=== PATIENT | female | born 1955 | race Caucasian/White ===

== ENCOUNTER 2017-03-18 22:49 | Observation (INO) | payer OTHER ==
--- NOTE | 2017-03-18 23:01 | EDPHY ---
H & P HPI/ROS: HPI CHIEF COMPLAINT: Chest pain, shortness of breath HISTORY OF PRESENT ILLNESS: This is a very pleasant 61-year-old female, denies any significant medical history specifically denies cardiovascular history no history of WA or stroke, otherwise healthy does not take any daily medications she presents emergency room with 1 day of chest discomfort. She states prior to this over the last 48 hours she has had a generalized flu-like illness. Patient reports that she has felt ill with mild flu-like illness for 48 hours but is getting better. Around 8:00 a.m. this morning she developed chest discomfort in the center of her chest sometimes goes up to right jaw all and numbness tingling down her right arm. It has been steady there today but worse this evening. No vomiting but did have nausea. No diaphoresis. Additionally she reports she can't take a deep breath in as it hurts. She initially described the pain is achy but also sharp stabbing at times. Does not radiate to her back. She has never had anything like this before. She did take aspirin prior to arrival. Current level pain 810. Denies history of DVT or PE. Past Medical History: Denies medical history Past Surgical History: Denies recent surgery Social History: Denies daily use drugs alcohol tobacco products. Family History: Noncontributory. ROS REVIEW OF SYSTEMS: A comprehensive 10 point review of systems is otherwise negative aside from elements mentioned in the history of present illness. Exam Constitutional triage nursing summary reviewed, vital signs reviewed, awake/ alert. Eyes normal conjunctivae and sclera, EOMI, PERRLA. HENT normal inspection, atraumatic, moist mucus membranes, no epistaxis, neck supple/ no meningismus, no raccoon eyes. Respiratory clear to auscultation bilaterally, normal breath sounds, no respiratory distress, no wheezing. Cardiovascular rate normal, regular rhythm, no murmur, no edema, distal pulses normal. Gastrointestinal soft, non-tender, no rebound, no guarding, normal bowel sounds, no distension, no pulsatile mass. Genitourinary no CVA tenderness. Musculoskeletal no midline vertebral tenderness, full range of motion, no calf swelling, no tenderness of extremities, no meningismus, good pulses, neurovascularly intact. Skin pink, warm, & dry, no rash, skin atraumatic. Neurologic awake, alert and oriented x 3, AAOx3, moves all 4 extremities equally, motor intact, sensory intact, CN II-XII intact, normal cerebellar, normal vision, normal speech. Psychiatric normal mood/affect. Heme/Lymph/Immune no lymphadenopathy. 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 Re-evaluation: EKG interpretation by me on record in [employer] system. Impression time of EKG 2300, this is sinus rhythm rate of 73 I do not appreciate acute ischemic changes specifically no ST elevation ST depression T-wave abnormalities. Unremarkable EKG. 2359: This patient's troponin is noted to be normal. EKG nonischemic. However her D-dimer is noted to be positive. In the setting this patient is 61 years old has pleuritic pain chest pain and shortness of breath and positive D-dimer will proceed with CT angiogram of the chest. Rule out pulmonary embolism. Chest x-ray one view reviewed by myself. Negative for acute cardiopulmonary disease. No free air. 1204: I did review this patient at this time. She still has ongoing chest pain. Nitroglycerin did not improve her discomfort. I have ordered her 4 mg of morphine and 4 mg Zofran at this time. CT scan angiogram of the chest with IV contrast shows no pulmonary embolism. Does show right apical pleural thickening. Recommend repeat CT scan in 1 year if she has smoking history. Re-evaluation at 1:42 a.m.: Patient does state she feels more relaxed however still has ongoing pain. It is pleuritic in nature when she breathes in. I have ordered her Toradol as well as Dilaudid to see if this improves her discomfort. Low-dose Toradol 50 mg. 1 mg Dilaudid. Additionally updated her on her CT scan. She does have a remote smoking history when she was young. Recommend repeat CT scan of her chest in 1 year with her primary care doctor she understands. Additionally as she is having ongoing unexplained chest discomfort in his 61- year-old I recommend she stays overnight for further cardiac evaluation and rule out she agrees for this. Spoke with the hospitalist service Dr. Osman agrees to admit the patient. Dr. Aniket Frazier did notify me that she does have a thyroid nodule that needs follow-up with an ultrasound outpatient basis. Source: Patient Constitutional: Initial Vital Signs Temperature (C) 36.7 C 03/18/17 22:57 Heart Rate 74 03/18/17 22:57 Respiratory Rate 16 03/18/17 22:57 Blood Pressure 130/77 H 03/18/17 22:57 O2 Sat (%) 97 03/18/17 22:57 O2 Delivery Mode Nasal Cannula O2 (L/minute) 2 Allergies/Adverse Reactions: No Known Allergies Allergy (Unverified 03/18/17 23:06) Home Medications: Medication Instructions Recorded Aspirin EC [Aspirin EC 81 mg (*)] 81 mg PO DAILY@03/19/17 Calcium Carb W/Vit D [Calcium Carb 500 mg PO DAILY@03/19/17 W/Vit D 500/200 (*)] Herbals/Supplements -Info Only 1 ea PO DAILY 03/19/17 Methylcellulose [Citrucel] 2,000 mg PO DAILY@03/19/17 Propylene Glycol/Peg 400/Pf 1 each EACHEYE BID PRN 03/19/17 [Systane 0.3-0.4% Eye Drops] Valacyclovir HCl [Valtrex] 1,000 mg PO DAILY 03/19/17 Medical Decision Making - Data Points Laboratory Results: Laboratory Results 03/18/17 23:05 03/18/17 23:05 Medications Given: Acetaminophen (Tylenol) 650 mg PO Q4HRS PRN PRN Reason: Pain, Mild/Fever, Can Take PO Stop: 09/15/17 01:51 Last Admin: 03/19/17 18:35 Dose: 650 mg Albuterol (Proventil Neb) 3 ml IH TID [facility] Stop: 09/15/17 15:59 Last Admin: 03/19/17 21:35 Dose: 3 ml Enoxaparin Sodium (Lovenox) 40 mg SC DAILY [facility] Stop: 09/15/17 08:59 Last Admin: 03/19/17 08:41 Dose: 40 mg Oxycodone HCl (Oxycodone Ir) 5 mg PO Q4HRS PRN PRN Reason: Pain, Severe Able to Take PO Stop: 03/29/17 13:13 Last Admin: 03/19/17 21:49 Dose: 5 mg Discontinued Medications Al Hydroxide/Mg Hydroxide (Maalox Susp) 30 ml PO ONCE ONE Stop: 03/19/17 00:42 Last Admin: 03/19/17 00:46 Dose: 30 ml Hydromorphone HCl (Dilaudid) 1 mg IVP EDNOW ONE Stop: 03/19/17 02:21 Last Admin: 03/19/17 02:25 Dose: 1 mg Hyoscyamine Sulfate (Levsin, Hyomax-Sl) 0.25 mg PO ONCE ONE Stop: 03/19/17 00:42 Last Admin: 03/19/17 00:46 Dose: 0.25 mg Sodium Chloride (Ns) 500 mls @ 1,000 mls/hr IV EDNOW ONE PRN Reason: Protocol Stop: 03/18/17 23:39 Last Admin: 03/18/17 23:27 Dose: 500 mls Ketorolac Tromethamine (Toradol) 15 mg IVP EDNOW ONE Stop: 03/19/17 02:21 Last Admin: 03/19/17 02:24 Dose: 15 mg Ketorolac Tromethamine (Toradol) 15 mg IVP ONCE ONE Stop: 03/19/17 07:19 Last Admin: 03/19/17 08:34 Dose: 15 mg Lidocaine (Lidocaine 2% Viscous) 15 ml PO ONCE ONE Stop: 03/19/17 00:42 Last Admin: 03/19/17 00:46 Dose: 15 ml Methylprednisolone Sodium Succinate (Solu-Medrol) 125 mg IVP ONCE ONE Stop: 03/19/17 13:13 Last Admin: 03/19/17 13:42 Dose: 125 mg Morphine Sulfate (Morphine) 4 mg IVP EDNOW ONE Stop: 03/19/17 00:04 Last Admin: 03/19/17 00:08 Dose: 4 mg Nitroglycerin (Nitrostat) 0.4 mg SL EDNOW ONE Stop: 03/18/17 23:13 Last Admin: 03/18/17 23:26 Dose: 0.4 tab Ondansetron HCl (Zofran) 4 mg IVP EDNOW ONE Stop: 03/19/17 00:04 Last Admin: 03/19/17 00:08 Dose: 4 mg Departure - Departure Disposition: [facility] Inpatient Acute Clinical Impression: Chest pain Qualifiers: Chest pain type: unspecified Qualified Code(s): R07.9 - Chest pain, unspecified Condition: Fair
--- NOTE | 2017-03-18 23:08 | CPEKG ---
Heart Rate: 73 RR Interval: 822 P-R Interval: 148 QRSD Interval: 90 QT Interval: 404 QTC Interval: 446 P [place]: 57 QRS [place]: 68 T Wave [place]: 20 EKG Severity - NORMAL ECG - EKG Impression: SINUS RHYTHM Electronically Signed By: Zbigniew Leonardo 19-Mar-2017 06:45:25
[2017-03-18] MEDS ORDERED: NS 500 ML IV ONE (23:10)
[2017-03-18] MEDS ORDERED: NITROGLYCERIN 0.4 MG BTL SL ONE (23:12)
[2017-03-18 23:26] LABS: % IMMATURE GRANULYOCYTES 0.3 % (0.0-1.1); ABSOLUTE IMMATURE GRANULOCYTES 0.02 10^3/uL (0.00-0.10); ADD DIFF? NO; ADD MORPH? NO; ADD SCAN? NO; ATYPICAL LYMPHOCYTE FLAG 10 (0-99); FRAGMENT RBC FLAG 0 (0-99); HEMATOCRIT 42.1 % (38.0-47.0); HEMOGLOBIN 14.5 g/dL (12.6-16.3); LEFT SHIFT FLG 10 (0-99); LIPEMIA HEMOLYSIS FLAG 90 (0-99); MEAN CELL HEMOGLOBIN CONCENTR. 34.4 g/dL (32.4-36.7); MEAN CELL VOLUME 98.6 fL (81.5-99.8); MEAN PLATELET VOLUME 9.2 fL (8.7-11.7); PLATELET CLUMPS FLAG 20 (0-99); PLATELET COUNT 245 10^3/uL (150-400); RED BLOOD CELL COUNT 4.27 10^6/uL (4.18-5.33); RED CELL DISTRIBUTION WIDTH 12.1 % (11.5-15.2)
[2017-03-18 23:34] LABS: ALANINE AMINOTRANSFERASE 39 IU/L (9-52); ALBUMIN 3.9 g/dL (3.5-5.0); ALKALINE PHOSPHATASE 61 IU/L (38-126); ANION GAP 13 mEq/L (8-16); ASPARTATE AMINOTRANSFERASE 26 IU/L (14-46); BILIRUBIN,TOTAL 0.7 mg/dL (0.1-1.4); BILIRUBIN-CONJUGATED 0.2 mg/dL (0.0-0.5); BILIRUBIN-UNCONJUGATED 0.5 mg/dL (0.0-1.1); CARBON DIOXIDE 26 mEq/l (22-31); CHLORIDE 97 mEq/L (97-110); CREATININE 0.9 mg/dL (0.6-1.0); GLOMERULAR FILTRATION RATE > 60; GLUCOSE 118 mg/dL (70-100); MAGNESIUM 1.7 mg/dL (1.6-2.3); SODIUM 136 mEq/L (134-144); TOTAL PROTEIN 6.8 g/dL (6.3-8.2)
[2017-03-18 23:38] LABS: INR 0.95 (0.83-1.16); PROTIME(PATIENT) 12.6 SEC (12.0-15.0)
[2017-03-18 23:39] LABS: APTT 45.3 SEC (23.0-38.0)
[2017-03-18 23:45] LABS: TROPONIN I < 0.012 ng/mL (0.000-0.034)
[2017-03-19] MEDS ORDERED: ONDANSETRON 4 MG/2 ML VIAL IVP ONE (00:03)
[2017-03-19] MEDS ORDERED: ONDANSETRON 4 MG/2 ML VIAL ONE (00:05)
[2017-03-19] MEDS ORDERED: IOPAMIDOL (ISOVUE 370) 100 ML BTL IV ONE (00:06)
[2017-03-19] MEDS ORDERED: MAG HYDROX/AL HYDROX/SIMETH 30 ML UDCUP PO ONE (00:41)
[2017-03-19] MEDS ORDERED: HYOSCYAMINE SULFATE 0.125 MG TAB PO ONE (00:41)
[2017-03-19] MEDS ORDERED: LIDOCAINE 2% VISCOUS 15 ML UDCUP PO ONE (00:41)
[2017-03-19] MEDS ORDERED: HYOSCYAMINE SULFATE 0.125 MG TAB ONE (00:49)
[2017-03-19] MEDS ORDERED: ACETAMINOPHEN 325 MG TAB PO PRN (01:52)
[2017-03-19] MEDS ORDERED: ONDANSETRON 4 MG/2 ML VIAL IVP PRN (01:52)
[2017-03-19] MEDS ORDERED: ONDANSETRON DISINTEGRATING 4 MG TAB PO PRN (01:52)
[2017-03-19] MEDS ORDERED: HYDROmorphONE/DILAUDID 1 MG/ML INJ IVP ONE (02:20)
[2017-03-19] MEDS ORDERED: KETOROLAC 15 MG/1 ML SDV IVP ONE ×2 (02:20→07:18)
--- NOTE | 2017-03-19 02:28 | PDGENHP ---
History and Physical - Chief Complaint Chest pain - History of Present Illness 61 yo F w/ no significant PMHx presents with chest pain. She has had flu like symptoms for 2 days including fatigue and congestion. On the morning prior to admission she felt better but then she developed severe, central chest pain around 8 AM. The pain is very positional, worse when she lays back or leans forward. It is also pleuritic and worsened by deep breathing with some radiation to her neck. It is not reproducible on palpation and she has not had similar pain in the past. Pain was improved by ibuprofen but unaffected by nitroglycerin. In the ED work up thus far unrevealing with negative troponin, non-ischemic ECG , and CTPE without pulmonary embolism or pneumonia. History Information - Allergies/Home Medication List Allergies/Adverse Reactions: No Known Allergies Allergy (Unverified 03/18/17 23:06) Home Medications: ASPIRIN 03/18/17 [Last Taken Unknown] Valtrex (*) 03/18/17 [Last Taken Unknown] I have personally reviewed and updated: family history, medical history - Past Medical History no pertinent PMH - Family History Positive for: cancer, stroke - Social History Smoking Status: Never smoked Drug Use: None Review of Systems Review of Systems: ROS: 10pt was reviewed & negative except for what was stated in HPI & below Physical Exam Physical Exam: Temp Pulse Resp BP Pulse Ox 36.7 C 85 18 106/83 H 95 03/18/17 22:57 03/19/17 02:12 03/19/17 02:12 03/19/17 02:12 03/19/17 02:12 Constitutional: no apparent distress, not in pain Eyes: PERRL, EOMI Ears, Nose, Mouth, Throat: moist mucous membranes, no oral mucosal ulcers Cardiovascular: regular rate and rhythym, no murmur, rub, or gallop Respiratory: no respiratory distress, no rales or rhonchi Gastrointestinal: normoactive bowel sounds, soft, non-tender abdomen Genitourinary: no bladder fullness, no bladder tenderness Skin: warm, normal color Musculoskeletal: full muscle strength, no muscle tenderness Neurologic: AAOx3, CN II-XII Intact Psychiatric: interacting appropriately, not anxious Lab Data & Imaging Review 03/18/17 23:05 03/18/17 23:05 WBC 7.60 10^3/uL (3.80-9.50) 03/18/17 23:05 RBC 4.27 10^6/uL (4.18-5.33) 03/18/17 23:05 Hgb 14.5 g/dL (12.6-16.3) 03/18/17 23:05 Hct 42.1 % (38.0-47.0) 03/18/17 23:05 MCV 98.6 fL (81.5-99.8) 03/18/17 23:05 MCH 34.0 pg (27.9-34.1) 03/18/17 23:05 MCHC 34.4 g/dL (32.4-36.7) 03/18/17 23:05 RDW 12.1 % (11.5-15.2) 03/18/17 23:05 Plt Count 245 10^3/uL (150-400) 03/18/17 23:05 MPV 9.2 fL (8.7-11.7) 03/18/17 23:05 Neut % (Auto) 64.9 % (39.3-74.2) 03/18/17 23:05 Lymph % (Auto) 23.6 % (15.0-45.0) 03/18/17 23:05 Stanley % (Auto) 10.1 % (4.5-13.0) 03/18/17 23:05 Eos % (Auto) 0.8 % (0.6-7.6) 03/18/17 23:05 Baso % (Auto) 0.3 % (0.3-1.7) 03/18/17 23:05 Nucleat RBC Rel Count 0.0 % (0.0-0.2) 03/18/17 23:05 Absolute Neuts (auto) 4.94 10^3/uL (1.70-6.50) 03/18/17 23:05 Absolute Lymphs (auto) 1.79 10^3/uL (1.00-3.00) 03/18/17 23:05 Absolute Monos (auto) 0.77 10^3/uL (0.30-0.80) 03/18/17 23:05 Absolute Eos (auto) 0.06 10^3/uL (0.03-0.40) 03/18/17 23:05 Absolute Basos (auto) 0.02 10^3/uL (0.02-0.10) 03/18/17 23:05 Absolute Nucleated RBC 0.00 10^3/uL (0-0.01) 03/18/17 23:05 Immature Gran % 0.3 % (0.0-1.1) 03/18/17 23:05 Immature Gran # 0.02 10^3/uL (0.00-0.10) 03/18/17 23:05 PT 12.6 SEC (12.0-15.0) 03/18/17 23:05 INR 0.95 (0.83-1.16) 03/18/17 23:05 APTT 45.3 SEC (23.0-38.0) H 03/18/17 23:05 D-Dimer 0.57 ug/mLFEU (0.00-0.50) H 03/18/17 23:05 Sodium 136 mEq/L (134-144) 03/18/17 23:05 Potassium 4.0 mEq/L (3.5-5.2) 03/18/17 23:05 Chloride 97 mEq/L (97-110) 03/18/17 23:05 Carbon Dioxide 26 mEq/l (22-31) 03/18/17 23:05 Anion Gap 13 mEq/L (8-16) 03/18/17 23:05 BUN 20 mg/dL (7-23) 03/18/17 23:05 Creatinine 0.9 mg/dL (0.6-1.0) 03/18/17 23:05 Estimated GFR > 60 03/18/17 23:05 Glucose 118 mg/dL (70-100) H 03/18/17 23:05 Calcium 9.0 mg/dL (8.5-10.4) 03/18/17 23:05 Magnesium 1.7 mg/dL (1.6-2.3) 03/18/17 23:05 Total Bilirubin 0.7 mg/dL (0.1-1.4) 03/18/17 23:05 Conjugated Bilirubin 0.2 mg/dL (0.0-0.5) 03/18/17 23:05 Unconjugated Bilirubin 0.5 mg/dL (0.0-1.1) 03/18/17 23:05 AST 26 IU/L (14-46) 03/18/17 23:05 ALT 39 IU/L (9-52) 03/18/17 23:05 Alkaline Phosphatase 61 IU/L (38-126) 03/18/17 23:05 Creatine Kinase 101 IU/L (0-156) 03/18/17 23:05 CK-MB (CK-2) Fraction 1.60 ng/mL (0.00-3.19) 03/18/17 23:05 Troponin I < 0.012 ng/mL (0.000-0.034) 03/18/17 23:05 NT-Pro-B Natriuret Pep 175 pg/mL (0-125) H 03/18/17 23:05 Total Protein 6.8 g/dL (6.3-8.2) 03/18/17 23:05 Albumin 3.9 g/dL (3.5-5.0) 03/18/17 23:05 Lipase 52 IU/L (23-300) 03/18/17 23:05 Imaging Review: CTPE without pulmonary embolism. Visualized and Interpreted EKG results: Yes EKG Interpretation: Positive for: normal sinsus rhythm, NS ST wave abnormalities Assessment & Plan Assessment: 61 yo F presents w/ atypical chest pain. Plan: 1. Atypical chest pain - Acute onset, positional, and pleuritic; unaffected by NTG. CTPE negative for embolism, pneumothorax, and pneumonia. Troponin negative and ECG non-ischemic. Patient continues to have significant discomfort. Noting recent viral illness, most likely etiology is viral inflammation of brennen- cardial structures such and pericarditis or pleuritis. - Admit for observation and ACS rule-out - Monitor on telemetry, trend cardiac enzymes - Trial Toradol for pain control noting likely inflammatory component - Noting atypical nature, I do not feel inpatient cardiac risk stratification is required unless additional work-up is suggestive of cardiac etiology Diet - Regular Code - Full Ppx - LMWH Dispo - Admit to observation status
[2017-03-19 08:23] LABS: % IMMATURE GRANULYOCYTES 0.3 % (0.0-1.1); ABSOLUTE IMMATURE GRANULOCYTES 0.02 10^3/uL (0.00-0.10); ADD DIFF? NO; ADD MORPH? NO; ADD SCAN? NO; ATYPICAL LYMPHOCYTE FLAG 10 (0-99); FRAGMENT RBC FLAG 0 (0-99); HEMOGLOBIN 12.1 g/dL (12.6-16.3); LEFT SHIFT FLG 40 (0-99); LIPEMIA HEMOLYSIS FLAG 90 (0-99); MEAN CELL HEMOGLOBIN 34.3 pg (27.9-34.1); MEAN CELL HEMOGLOBIN CONCENTR. 34.6 g/dL (32.4-36.7); MEAN CELL VOLUME 99.2 fL (81.5-99.8); MEAN PLATELET VOLUME 9.2 fL (8.7-11.7); PLATELET CLUMPS FLAG 10 (0-99); PLATELET COUNT 185 10^3/uL (150-400); RED BLOOD CELL COUNT 3.53 10^6/uL (4.18-5.33); RED CELL DISTRIBUTION WIDTH 12.2 % (11.5-15.2)
[2017-03-19 08:38] LABS: ANION GAP 9 mEq/L (8-16); CALCIUM 8.4 mg/dL (8.5-10.4); CARBON DIOXIDE 25 mEq/l (22-31); CHLORIDE 102 mEq/L (97-110); CREATININE 0.8 mg/dL (0.6-1.0); GLOMERULAR FILTRATION RATE > 60; GLUCOSE 102 mg/dL (70-100); POTASSIUM 4.6 mEq/L (3.5-5.2); SODIUM 136 mEq/L (134-144)
[2017-03-19] MEDS: ENOXAPARIN 40 MG/0.4 ML SYR SC SCH (08:41)
[2017-03-19 08:50] LABS: TROPONIN I < 0.012 ng/mL (0.000-0.034)
--- NOTE | 2017-03-19 11:58 | ASMTCMCOM ---
CM Note CM Note Notes: 03/19/2017 Case Management Note Reviewed chart. There are no PT or OT evals ordered. Case Management did not identifiy any d/c needs at this time d/t pt age, marital status and activity levels prior to admission. Case Management d/c poc: Home independent with family support when medically stable with follow up as directed. Case management available if needs change. Date Signed: 03/19/2017 11:57 AM Electronically Signed By:Gini Zaidi RN
[2017-03-19] MEDS ORDERED: methylPREDNISolone SOD SUCC 125 MG/2 ML VIAL IVP ONE (13:12)
[2017-03-19] MEDS ORDERED: HYDROmorphONE/DILAUDID 1 MG/ML INJ IVP PRN (13:13)
[2017-03-19] MEDS ORDERED: oxyCODONE IR 5 MG TAB PO PRN (13:14)
[2017-03-19] MEDS ORDERED: HYDROmorphone HCL/NS/PF 0.4 MG/2 ML SYR IVP PRN (13:18)
--- NOTE | 2017-03-19 13:19 | HOSPPROG ---
Hospitalist Progress Note Assessment/Plan: New patient 61 yo F presents w/ atypical chest pain. W/u negative for cardiac etiology. Her lung exam is more consistent with RAD vs bronchitis. She will be started on IV steroids x 1 today and transition to oral steroids tomorrow. Schedule Nebs. She does not have any chest wall tenderness. Her main complaint is pain mgmt and she will be kept overnight to provide adequate control. CTA chest - EKG: non ischemic Trop: negative x 2 1. Atypical chest pain - 2. Acute bronchitis/RAD. 3. Acute pain Diet - Regular Code - Full Ppx - LMWH Dispo - Change to inpatient Subjective: No CP currenlty. Earlier she had chest pain when walking, felt SOB. Feels like she can take a deep breath or cough. She denies hx of asthma. She was previously a tobacco smoker for several years. Objective: Vital Signs Temp Pulse Resp BP Pulse Ox 36.9 C 71 19 93/54 L 93 03/19/17 11:29 03/19/17 11:29 03/19/17 11:29 03/19/17 11:29 03/19/17 11:29 Laboratory Results 03/19/17 08:14 03/19/17 08:14 03/18/17 03/19/17 03/20/17 05:59 05:59 05:59 Intake Total 1100 Balance 1100 PT 12.6 SEC (12.0-15.0) 03/18/17 23:05 INR 0.95 (0.83-1.16) 03/18/17 23:05 - Physical Exam Constitutional: no apparent distress Eyes: PERRL, EOMI Ears, Nose, Mouth, Throat: moist mucous membranes, hearing normal Cardiovascular: regular rate and rhythym, No edema Respiratory: no respiratory distress, reduced air movement Gastrointestinal: normoactive bowel sounds, soft, non-tender abdomen Genitourinary: no bladder fullness Skin: warm Musculoskeletal: full muscle strength Neurologic: AAOx3 Psychiatric: interacting appropriately, not anxious, not encephalopathic ICD10 Worksheet Patient Problems: Problems Problem Status Onset Chest pain Acute
--- NOTE | 2017-03-19 14:20 | PDMN ---
Medical Necessity Medical necessity: C/M review: est. > 2 MN LOS for acute atypical chest pain, acute bronchitis, reactive airway disease, acute pain chest pain and shortness of breath with ambulation requiring IV steroid x 1, planned 03/20/2017 transition to oral steroids, ongoing cardiac monitoring, pulse oximetry, nebs, supplemental O2 as needed, comorbid hx prior tobacco smoker for several years per 03/19/2017 Hospitalist progress note.
[2017-03-19] MEDS: ALBUTEROL 3 ML DEYVIAL IH SCH ×2 (15:07→21:35)
[2017-03-20] MEDS: ALBUTEROL 3 ML DEYVIAL IH SCH (08:20)
[2017-03-20] MEDS: ENOXAPARIN 40 MG/0.4 ML SYR SC SCH (08:28)
[2017-03-20] MEDS ORDERED: predniSONE 20 MG TAB PO SCH (09:00)
[2017-03-20 11:24] VITALS: BP 102/60; PULSE 60; RESP 16; TEMP 98.4; O2SAT 92
--- NOTE | 2017-03-20 15:31 | ASDISCHSUM ---
Discharge Information Plan Status:Home with No Needs Medically Cleared to Leave: Discharge Date:03/20/2017 03:00 PM CM D/C Disposition:Home, Routine, Self-Care ADT D/C Disposition:Home, Routine, Self-Care Projected Discharge Date:03/20/2017 03:00 PM Transportation at D/C:Family Discharge Delay Reason: Follow-Up Date:03/20/2017 03:00 PM Discharge Slot: Final Diagnosis: Placement Information Patient Contact Information Contact Name:GEN Relationship: Address:[address] [place] [address] [place] City:[place] Alternate Phone: [facility]/Zip Code:[place] [address] Email: Financial Information Financial Class:HMO and PPO Plans Primary Plan Desc:MARIA C QIU PPO Primary Plan Number:[id number] Secondary Plan Desc: Secondary Plan Number: Assessment Information [facility] CM Progress Note CM Note CM Note Notes: 03/19/2017 Case Management Note Reviewed chart. There are no PT or OT evals ordered. Case Management did not identifiy any d/c needs at this time d/t pt age, marital status and activity levels prior to admission. Case Management d/c poc: Home independent with family support when medically stable with follow up as directed. Case management available if needs change. Date Signed: 03/19/2017 11:57 AM Electronically Signed By:Gini Zaidi RN Intervention Information
--- NOTE | 2017-03-20 18:52 | PDDCSUM ---
Discharge Summary Discharge Summary: DISCHARGE SUMMARY FOLLOW-UP ITEMS: Outpatient reassessment with her primary care provider DATE OF ADMISSION: 03/19/2017 DATE OF DISCHARGE: 03/20/2017 DISCHARGE DIAGNOSES: 1. Acute chest pain 2. Acute reactive airway exacerbation 3. Suspected pleuritis 4. Acute atelectasis 5. Suspected upper respiratory infection CONSULTATIONS: None PROCEDURES / IMAGING: CT angiograms demonstrating no pulmonary embolism, atelectasis, peribronchial thickening CHIEF COMPLAINT: Acute chest pain SUBJECTIVE: Patient is feeling well at time discharge, her chest discomfort is subsiding PHYSICAL EXAM ON DISCHARGE: Systolic blood pressure 100, heart rate 60, afebrile overnight, satting well on room air, lungs are clear on inspiration, faint expiratory wheeze bilaterally with reduced air movement on expiration, no bronchial breath sounds LABS ON DISCHARGE: Troponin negative x2, D-dimer negative, flu PCR negative HOSPITAL COURSE BY PROBLEM: The patient presented with acute chest pain most likely secondary to acute pleuritis in the setting of reactive airway disease and suspected upper respiratory infection. She was ruled out for influenza with PCR swab, responded well to nonsteroidal anti-inflammatories as well as steroids and nebulizer treatment. She will be discharged home on a 5 day burst of prednisone , as needed naproxen, as needed oxycodone immediate release, albuterol inhaler. Recommend that she will follow up with her primary care provider later this week for reassessment. DISCHARGE MEDICATIONS: Please see official discharge medication reconciliation sheet in chart , prednisone 40 mg daily x3 subsequent days, naproxen as needed, oxycodone immediate release as needed, albuterol inhaler. DISCHARGE INSTRUCTIONS: Please follow up with Dr. Narciso Evans later this week.
== END 2017-03-20 15:00 | disposition home or self-care (01) ==
LOC: F2W 03-19 02:47 → OBSVTOIN 03-19 13:15 → INTOOBSV 03-19 13:15
PROVIDERS: ADMIT Student in an Organized Health Care Education/Training Program; ATTEND Student in an Organized Health Care Education/Training Program
DX: R07.9 Chest pain, unspecified (principal); J45.901 Unspecified asthma with (acute) exacerbation; J98.11 Atelectasis; Z87.891 Personal history of nicotine dependence
CPT/HCPCS: 96374; G0378; J1170; J1650; J1885; J2405; J2930; Q9967

== ENCOUNTER → 2017-04-04 | Outpatient (CLI) | payer OTHER | LOC: FIMAGING 13:37 | PROVIDERS: ATTEND Internal Medicine | DX: Z12.31 Encounter for screening mammogram for malignant neoplasm of breast (principal) | CPT/HCPCS: G0202 ==

== ENCOUNTER → 2017-04-05 | Outpatient (CLI) | payer OTHER | LOC: FIMAGING 12:37 | PROVIDERS: ATTEND Internal Medicine | DX: E04.1 Nontoxic single thyroid nodule (principal) ==

== ENCOUNTER → 2017-04-11 | Outpatient (CLI) | payer OTHER ==
[~2017-04-11] MED LIST: LIDOCAINE 1% 300 MG/30 ML SDV ONE
== END ==
LOC: FIMAGING 12:03
PROVIDERS: ATTEND Internal Medicine
PROC: 0G9K3ZX Drainage of Thyroid Gland, Percutaneous Approach, Diagnostic (ICD-10-PCS; principal; 2017-04-11)
DX: C73 Malignant neoplasm of thyroid gland (principal)

== ENCOUNTER → 2018-01-10 | Outpatient (CLI) | payer OTHER | LOC: BMCIMAGING 11:17 | PROVIDERS: ATTEND Internal Medicine | DX: Z13.820 Encounter for screening for osteoporosis (principal); M85.89 Other specified disorders of bone density and structure, multiple sites ==

== ENCOUNTER → 2018-04-05 | Outpatient (CLI) | payer OTHER | LOC: FIMAGING 13:12 | PROVIDERS: ATTEND Internal Medicine | DX: Z12.31 Encounter for screening mammogram for malignant neoplasm of breast (principal) ==

== ENCOUNTER → 2018-04-11 | Outpatient (CLI) | payer OTHER | LOC: FIMAGING 12:21 | PROVIDERS: ATTEND Internal Medicine | DX: R92.8 Other abnormal and inconclusive findings on diagnostic imaging of breast (principal) ==